=== PATIENT | male | born 1995 ===

== ENCOUNTER 2023-04-12 10:21 | Outpatient (CLI) | payer OTHER, SELFPAY | END 2023-04-12 10:22 | disposition home or self-care (01) | LOC: LKVREF 10:21 | PROVIDERS: PCP Family Medicine; Visit Provider Family Medicine | DX: Z13.220 Encounter for screening for lipoid disorders (principal) | CPT/HCPCS: 80061 ==

== ENCOUNTER 2023-10-16 07:39 | Outpatient (CLI) | payer OTHER, SELFPAY | END 2023-10-16 07:40 | disposition home or self-care (01) | LOC: NFLDREF 10-19 20:22 | PROVIDERS: PCP Family Medicine; Referring Provider Family Medicine; Visit Provider Family Medicine | DX: E78.5 Hyperlipidemia, unspecified (principal) | CPT/HCPCS: 80061 ==

== ENCOUNTER 2024-12-25 19:40 | Emergency (ER) | payer OTHER, SELFPAY ==
[2024-12-25 19:45] VITALS: BP 147/84; PULSE 113; RESP 18; TEMP 37.2; O2SAT 97
--- NOTE | 2024-12-25 20:14 | ED_ITS ---
HPI - General Adult General Date Seen: 12/25/24 Chief complaint: Skin/Abscess/Foreign Body Stated complaint: possible infection in right calf Time Seen by Provider: 12/25/24 20:01 Source: patient Mode of arrival: ambulatory Limitations: no limitations History of Present Illness HPI narrative: Patient is a 29-year-old male presenting for right knee pain and right anterior lower leg erythema. He is concerned he could have a cellulitis. States about 2 weeks ago he was doing some for work has been having pain to his right knee since then. States the pain is mostly just above the patella but is starting to have more pain to the medial and lateral joint line. States he felt like the pain was getting better until today. Has not had any calf swelling. All the swelling has been to the anterior portion of the top half of the lower leg. No leg pain. Has not had any fevers or chills feels full range of motion of the knee. Denies fevers, chills, fatigue, weakness, numbness. No other concerns noted. No history of blood clots. Related Data Home Medications ?Medication ?Instructions ?Recorded ?Confirmed No Known Home Medications 12/25/2412/05 Allergies Allergy/AdvReac Type Severity Reaction Status Date / Time No Known Drug Allergies Allergy Verified 05/02/24 10:10 Review of Systems Narrative: Pertinent systems reviewed and were negative unless stated in HPI [facility] Medical History Asthma ?J45.909 - Unspecified asthma, uncomplicated (ICD-10) Surgical History History of sinus surgery ?Z98.890 - Other specified postprocedural states (ICD-10) Social History Smoking Status: Never smoker Second hand tobacco smoke exposure: No How often do you have a drink containing alcohol: never AUDIT-C Alcohol total score: 0 Non-prescribed substance use: denies use Exam Narrative: Exam Narrative: Const: Well-nourished, Well-developed, in no distress Eyes: PERRL, no conjunctival injection, and symmetrical lids HENT: Atraumatic external nose and ears. Moist mucous membranes. MSK:Extremities w/o deformity, Normal Active ROM, tenderness noted to the prepatellar bursa. Mild swelling erythema and swelling noted to the top half of the right anterior leg. Skin: Warm, Dry. Small abrasions noted to the bilateral knees. Appears to be where he was kneeling Neuro: Normal Muscle tone, No focal neurological deficits. Psych: Awake, Alert, & Oriented x3. Appropriate mood and affect. Const: Vital Signs, click to edit/add: Vital Signs - 24 hr 12/25/24 19:45 12/25/24 20:28 Temperature 99.0 F Pulse Rate [Pulse Oximeter] 113 H 111 H Respiratory Rate 18 16 Blood Pressure [Ri t Upper Arm] 147/84 H Pulse Oximetry 97 98 Oxygen Delivery Me thod Room Air Room Air Course Vital Signs Vital signs: Initial Vital Signs Temperature 99.0 F 12/25/24 19:45 Temperature Source Temporal Artery Scan 12/25/24 19:45 Pulse Rate 113 H 12/25/24 19:45 Respiratory Rate 18 12/25/24 19:45 Blood Pressure 147/84 H 12/25/24 19:45 Blood Pressure Mean 105 12/25/24 19:45 Blood Pressure Position Sitting 12/25/24 19:45 Pulse Oximetry 97 12/25/24 19:45 Oxygen Delivery Method Room Air 12/25/24 19:45 Vital Signs Temperature 99.0 F 12/25/24 19:45 Pulse Rate 113 H 12/25/24 19:45 Respiratory Rate 18 12/25/24 19:45 Blood Pressure 147/84 H 12/25/24 19:45 Pulse Oximetry 97 12/25/24 19:45 Oxygen Delivery Method Room Air 12/25/24 19:45 Temperature 99.0 F 12/25/24 19:45 Pulse Rate 111 H 12/25/24 20:28 Respiratory Rate 16 12/25/24 20:28 Blood Pressure 147/84 H 12/25/24 19:45 Pulse Oximetry 98 12/25/24 20:28 Oxygen Delivery Method Room Air 12/25/24 20:28 Medical Decision Making MDM Narrative Medical decision making narrative: Patient is a 29-year-old male presenting to the emergency department for right knee pain and concern of cellulitis. I do believe he has a prepatellar bursitis. There is no diffuse swelling of the leg any DVT seems very unlikely at this time. Has full range of motion of the knee and minimal pain at the joint lines. Seems very unlikely to be a septic joint. This is very mild warmth and swelling to the anterior aspect of the right lower leg so I will treat this as a cellulitis give him Keflex also. He is tachycardic per overall looks well and showing no signs of sepsis. He is safe for discharge. Discharge Plan Discharge Clinical Impression: Bursitis, prepatellar, right, Cellulitis Patient Disposition: Home, Self-Care Condition: Stable Instructions: Knee Bursitis (ED) Additional Instructions: Take the antibiotics as directed. You can pick them up the instymeds. Rec ommended icing the knee 3 times daily for 20 minutes along with rest. If symptoms persist follow-up with the primary care provider. Take NSAIDs such as ibuprofen and naproxen for pain is they will help with the inflammation. Return to emergency department for new or worsening symptoms Prescriptions: No Action No Known Home Medications Follow Up/Referrals: Von Noriega MD [Primary Care Provider, Family Practice] Stand Alone Forms: [employer] Info Instructions
[2024-12-25 20:28] VITALS: PULSE 111; RESP 16; O2SAT 98
[2024-12-25 20:38] VITALS: BP 140/70; PULSE 99; RESP 16; TEMP 37.2
== END 2024-12-25 20:38 | disposition home or self-care (01) ==
PROVIDERS: Emergency Provider Student in an Organized Health Care Education/Training Program; PCP Family Medicine
DX: M70.41 Prepatellar bursitis, right knee (principal); L03.115 Cellulitis of right lower limb
CPT/HCPCS: 99283